=== PATIENT | female | born 1985 | race Asian ===

== ENCOUNTER 2017-09-05 18:09 | Emergency (ER) | payer OTHER ==
[~2017-09-05] VITALS: Ht 157.5 cm; Wt 66.2 kg
[2017-09-05 18:11] VITALS: Ht 157.5 cm; Wt 66.2 kg
[2017-09-05 20:09] LABS: BASOPHIL % 0.6 % (0-2); PLATELET COUNT 225 x10^3mcL (130-400)
[2017-09-05 20:13] LABS: CALCIUM 8.7 mg/dL (8.5-10.1); CARBON DIOXIDE 22.4 mmol/L (21-32); CHLORIDE SERUM 102 mmol/L (98-107); CREATININE SERUM 0.6 mg/dL (0.6-1.0); GFR1 > 60 mL/min; GLUCOSE SERUM 82 mg/dL (74-106); POTASSIUM SERUM 3.7 mmol/L (3.5-5.1); SODIUM SERUM 137 mmol/L (136-145)
[2017-09-05 20:16] LABS: RED CELL DISTRIBUTION WIDTH 20.1 % (11.5-14.5)
[2017-09-05 20:17] LABS: ALKALINE PHOSPHATASE 113 U/L (46-116); ALT/SGPT 15 U/L (14-59); AST/SGOT 19 U/L (15-37); BILIRUBIN TOTAL 0.4 mg/dL (0.20-1.00)
[2017-09-05 20:18] LABS: ALBUMIN 2.7 g/dL (3.4-5.0)
[2017-09-05 21:02] LABS: rbc morphology (normal/abnorm) ABNORMAL (NORMAL); target cell (codocyte) 1+
[2017-09-05 21:09] LABS: UA SPECIFIC GRAVITY <=1.005 (1.005-1.035); microscopic required? YES; urine erythrocyte 3+ (NEGATIVE)
[2017-09-05 22:36] VITALS: BP 124/89
== END 2017-09-05 22:10 | disposition left against medical advice (07) ==
LOC: ED 18:09
PROVIDERS: Emergency Medicine
DX: O99.013 Anemia complicating pregnancy, third trimester (principal); O46.93 Antepartum hemorrhage, unspecified, third trimester; Z3A.36 36 weeks gestation of pregnancy
CPT/HCPCS: 36415